=== PATIENT | male | born 1945 | race Caucasian/White ===

== ENCOUNTER 2018-02-28 16:36 | Emergency (ER) | payer MEDICARE, BC ==
[2018-02-28 16:44] VITALS: RESP 18
[2018-02-28] MEDS ORDERED: SODIUM CHLORIDE 0.9% 1,000 ML IV STA (17:13)
[2018-02-28] MEDS ORDERED: NITROGLYCERIN OINT 1 INCH/GM PACKET TOPICAL STA (17:13)
[2018-02-28 17:45] LABS: Basophils % (A) 1 %; Eosinophils # (A) 0.3 k/uL (0-0.7); Eosinophils % (A) 4 %; HCT 44.4 % (39.0-53.0); HGB 15.7 gm/dL (13.0-17.5); Lymphocytes # (A) 1.2 k/uL (1.0-4.8); Lymphocytes % (A) 17 %; MCH 30.4 pg (25.0-35.0); MCHC 35.3 g/dL (31.0-37.0); MCV 86.1 fL (80.0-100.0); Mean Platelet Volume 8.6; Monocytes # (A) 0.6 k/uL (0-1.0); Monocytes % (A) 8 %; Neutrophils # (A) 4.8 k/uL (1.3-7.7); Neutrophils % (A) 68 %; Platelet Count 156 k/uL (150-450); RBC 5.16 m/uL (4.30-5.90); RDW 12.1 % (11.5-15.5)
[2018-02-28 17:53] LABS: Creatine Kinase 64 U/L (55-170)
[2018-02-28 17:55] LABS: Albumin 3.9 g/dL (3.5-5.0); Calcium 9.7 mg/dL (8.4-10.2); Magnesium 1.7 mg/dL (1.6-2.3); Potassium 4.2 mmol/L (3.5-5.1); Total Bilirubin 0.7 mg/dL (0.2-1.3); Total Protein 6.2 g/dL (6.3-8.2)
[2018-02-28 17:59] LABS: D-Dimer 0.21 mg/L FEU (<0.60); INR 1.2 (<1.2); Prothrombin Time 11.3 sec (9.0-12.0)
[2018-02-28 18:06] LABS: Creatine Kinase MB 0.8 ng/mL (0.0-2.4); Troponin I <0.012 ng/mL (0.000-0.034)
--- NOTE | 2018-02-28 18:13 | XR ---
EXAMINATION TYPE: XR chest 2V DATE OF EXAM: 02/28/2018 COMPARISON: 04/07/2012 HISTORY: Chest pain TECHNIQUE: Frontal and lateral views of the chest are obtained. FINDINGS: Heart is borderline enlarged. Lungs are clear. There is no heart failure. There are chest leads. Bony thorax is intact. IMPRESSION: No active cardiopulmonary disease. No adverse change compared to old exam.
--- NOTE | 2018-02-28 19:38 | ED ---
Chest Pain HPI - General Chief Complaint: Chest Pain Stated Complaint: Chest pain Time Seen by Provider: 02/28/18 17:07 Source: patient Mode of arrival: wheelchair Limitations: no limitations - History of Present Illness Initial Comments: 21 years old male presents with the chest pain ongoing for about 7 days now pain was driving down to his left arm as well as to his neck at times today he had episode where his vision was quite blurred and he feels that during A for a short time he had no D collection when he was doing very he was then now it HAS to swallow the history of firm coronary artery disease he's is status post CABG approximately 5 years ago chest pain at this point is 5/10 and he had admitted pain gets worse when he takes a deep breath. He denies any headache no blurred vision at this point no slurred speech has chest pain no abdominal pain no frequency urgency dysuria no symptoms of TIA or CVA - Related Data Home Medications Medication Instructions Recorded Confirmed Acarbose [Precose] 50 mg PO TID 02/14/15 02/28/18 Atorvastatin [Lipitor] 20 mg PO HS 02/14/15 02/28/18 Colchicine 0.6 mg PO QID PRN 02/14/15 02/28/18 Glimepiride [Amaryl] 4 mg PO BID 02/14/15 02/28/18 Metoprolol Tartrate [Lopressor] 75 mg PO DAILY 02/14/15 02/28/18 Rivaroxaban [Xarelto] 20 mg PO AC-SUPPER 02/14/15 02/28/18 metFORMIN HCL [Glucophage] 1,000 mg PO BID 02/14/15 02/28/18 Cholecalciferol [Vitamin D3] 2,000 unit PO DAILY 02/15/15 02/28/18 Metoprolol Tartrate [Lopressor] 50 mg PO HS 02/15/15 02/28/18 Olopatadine HCl [Pataday] 1 drop BOTH EYES DAILY PRN 02/15/15 02/28/18 Benazepril HCl 40 mg PO DAILY 02/28/18 02/28/18 Doxazosin [Cardura] 1 mg PO HS 02/28/18 02/28/18 Febuxostat [Uloric] 40 mg PO DAILY 02/28/18 02/28/18 Allergies Allergy/AdvReac Type Severity Reaction Status Date / Time allopurinol [From Zyloprim] Allergy Unknown Verified 02/28/18 18:05 acetaminophen [From Vicodin] AdvReac Dry mouth Verified 02/28/18 18:05 hydrocodone [From Vicodin] AdvReac Dry mouth Verified 02/28/18 18:05 Review of Systems ROS Statement: Those systems with pertinent positive or pertinent negative responses have been documented in the HPI. ROS Other: All systems not noted in ROS Statement are negative. EKG Findings - EKG Comments: EKG Findings:: EKG is atrial fibrillation medical rate is 81 QRS duration is 90 QT/QTc is 378/439 review of this EKG does not reveal any ST elevation or ST depression Past Medical History Past Medical History: Atrial Fibrillation, Diabetes Mellitus, Hyperlipidemia, Hypertension Additional Past Medical History / Comment(s): mild gout History of Any Multi-Drug Resistant Organisms: None Reported Past Surgical History: Ablation, Appendectomy, Cholecystectomy, Coronary Bypass/ CABG, Joint Replacement, Orthopedic Surgery Additional Past Surgical History / Comment(s): open heart to repair hole after ablation in 01/2012, left knee replacement , right hip replacement Past Anesthesia/Blood Transfusion Reactions: No Reported Reaction Past Psychological History: No Psychological Hx Reported Smoking Status: Former smoker Past Alcohol Use History: Rare Past Drug Use History: None Reported - Past Family History Father Family Medical History: Coronary Artery Disease (CAD) General Exam - General Exam Comments Initial Comments: General: The patient is awake and alert, in no distress, and does not appear acutely ill. Skin: Skin is warm and dry and no rashes or lesions are noted. Eye: Pupils are equal, round and reactive to light, extra-ocular movements are intact; there is normal conjunctiva bilaterally. Ears, nose, mouth and throat: There are moist mucous membranes and no oral lesions. Neck: The neck is supple, there is no tenderness or JVD. Cardiovascular: There is a regular rate and rhythm. No murmur, rub or gallop is appreciated. Respiratory: To auscultation bilateral, no wheezing no rhonchi no distress respiratory hidalgo noticed Gastrointestinal: Soft, non-distended, non-tender abdomen without masses or organomegaly noted. There is no rebound or guarding present. Bowel sounds are unremarkable. Back: There is no tenderness to palpation in the midline. There is no obvious deformity. Musculoskeletal: Normal ROM, no tenderness, There is no pedal edema. There is no calf tenderness or swelling. No cords were appreciated. Neurological: CN II-XII intact, Cranial nerves III through XII are intact. There are no obvious motor or sensory deficits. Coordination appears grossly intact. Speech is normal. Psychiatric: Cooperative, appropriate mood & affect, normal judgment. Limitations: no limitations Course Vital Signs 02/28/18 02/28/18 02/28/18 16:39 19:19 19:20 Temperature 98 F 97.8 F Pulse Rate 94 78 79 Respiratory 18 16 18 Rate Blood Pressure 143/82 119/78 119/78 O2 Sat by Pulse 98 95 99 Oximetry 02/28/18 20:27 Temperature 97.9 F Pulse Rate 69 Respiratory 18 Rate Blood Pressure 137/92 O2 Sat by Pulse [address] is pending at this point, EKG was unremarkable d-dimer is negative CBC, comp his metabolic panel are unremarkable except the nares 1.29 troponin is negative so his chest x-ray Critical Care Time Total Critical Care Time: 30 Critical Care Time: Patient headache, blurred vision and amnesia and is on his overall toe he has a history of atrial fibrillation, we did a head CT head CT to rule out any subdural or epidural EKG was done troponin was checked along with the d-dimer pneumothorax, pneumonia, pulmonary embolism, myocardial infarction ruled out but he has a history of coronary artery disease he was advised to get hold of Dr. Khan tomorrow morning for further outpatient E well with the EKG or CT angiogram coronary disease or stress test or cardiac He agreed with the Disposition Clinical Impression: Blurred vision, Headache, Chest pain Disposition: HOME SELF-CARE Condition: Good Instructions: Chest Pain (ED) Is patient prescribed a controlled substance at d/c from ED?: No If prescribed controlled substance>3 days was MAPS reviewed?: No When asked, does pt state using other controlled substances?: No Referrals: Gage Alonso MD [Primary Care Provider] - 1-2 days Michael Law MD [STAFF PHYSICIAN] - 1-2 days
--- NOTE | 2018-02-28 20:17 | CT ---
EXAMINATION TYPE: CT brain wo con DATE OF EXAM: 02/28/2018 COMPARISON: NONE HISTORY: Visual disturbance and memory impairment a couple days ago. Seems to have resolved currently . CT DLP: 989.7 mGycm Automated exposure control for dose reduction was used. FINDINGS: Ventricles have normal size. There is no mass effect nor midline shift. There is no sign of intracran ial hemorrhage. The calvarium is intact. IMPRESSION: NEGATIVE CT SCAN OF THE BRAIN.
[2018-02-28 20:28] VITALS: BP 137/92; PULSE 69; TEMP 97.9
== END 2018-02-28 20:56 | disposition home or self-care (01) ==
LOC: EC 16:36
DX: R07.9 Chest pain, unspecified (principal); R51 Headache; H53.8 Other visual disturbances; I48.91 Unspecified atrial fibrillation; E11.9 Type 2 diabetes mellitus without complications; E78.5 Hyperlipidemia, unspecified; I10 Essential (primary) hypertension; M10.9 Gout, unspecified; Z95.1 Presence of aortocoronary bypass graft; Z96.652 Presence of left artificial knee joint; Z87.891 Personal history of nicotine dependence; Z96.641 Presence of right artificial hip joint; Z98.890 Other specified postprocedural states; Z82.49 Family history of ischemic heart disease and other diseases of the circulatory system; Z79.01 Long term (current) use of anticoagulants; Z79.84 Long term (current) use of oral hypoglycemic drugs; Z79.899 Other long term (current) drug therapy; Z88.8 Allergy status to other drugs, medicaments and biological substances; Z88.5 Allergy status to narcotic agent; Z88.6 Allergy status to analgesic agent
CPT/HCPCS: 36415; 70450; 71046; 80053; 82550; 82553; 83735; 84484; 85025; 85379; 85610; 85730; 93005; 96360; 96361; 99291

== ENCOUNTER 2019-02-04 19:03 | Emergency (ER) | payer BC, MEDICARE ==
[2019-02-04 19:17] VITALS: BP 114/71; PULSE 99; RESP 20; TEMP 98.7
--- NOTE | 2019-02-04 19:31 | ED ---
General Adult HPI - General Chief complaint: Extremity Injury, Lower Stated complaint: fall, head injury, rt knee injury Time Seen by Provider: 02/04/19 19:22 Source: patient, family Mode of arrival: wheelchair Limitations: no limitations - History of Present Illness Initial comments: Mik is a pleasant 73-year-old gentleman with a history of A. fib for which he takes throughout O he presents the emergency department this evening for evaluation of right knee pain and abrasion to his right forehead. Patient reports that earlier in the day he was walking, using his cane in a parking not when he tripped over a crack in the concrete. He fell forward striking his right knee and right side of his face. This broke his glasses. He did not have any loss of consciousness he was able get up is able to walk. He reports that throughout the days have progressively worsening soreness in the right knee surgery came in for an x-ray. The patient does note that he has an abrasion above his right eyebrow Mayra he does not recall when his last tetanus vaccination was. - Related Data Home Medications Medication Instructions Recorded Confirmed Acarbose [Precose] 50 mg PO TID 02/14/15 02/28/18 Atorvastatin [Lipitor] 20 mg PO HS 02/14/15 02/28/18 Colchicine 0.6 mg PO QID PRN 02/14/15 02/28/18 Glimepiride [Amaryl] 4 mg PO BID 02/14/15 02/28/18 Metoprolol Tartrate [Lopressor] 75 mg PO DAILY 02/14/15 02/28/18 Rivaroxaban [Xarelto] 20 mg PO AC-SUPPER 02/14/15 02/28/18 metFORMIN HCL [Glucophage] 1,000 mg PO BID 02/14/15 02/28/18 Cholecalciferol [Vitamin D3] 2,000 unit PO DAILY 02/15/15 02/28/18 Metoprolol Tartrate [Lopressor] 50 mg PO HS 02/15/15 02/28/18 Olopatadine HCl [Pataday] 1 drop BOTH EYES DAILY PRN 02/15/15 02/28/18 Doxazosin [Cardura] 1 mg PO HS 02/28/18 02/28/18 Febuxostat [Uloric] 40 mg PO DAILY 02/28/18 02/28/18 Benazepril HCl 10 mg PO DAILY 02/04/19 02/04/19 Dulaglutide [Trulicity] 0.75 mg SQ WE 02/04/19 02/04/19 Empagliflozin [Jardiance] 25 mg PO DAILY 02/04/19 02/04/19 Allergies Allergy/AdvReac Type Severity Reaction Status Date / Time allopurinol [From Zyloprim] Allergy Unknown Verified 02/04/19 20:04 acetaminophen [From Vicodin] AdvReac Dry mouth Verified 02/04/19 20:04 hydrocodone [From Vicodin] AdvReac Dry mouth Verified 02/04/19 20:04 Review of Systems ROS Statement: Those systems with pertinent positive or pertinent negative responses have been documented in the HPI. ROS Other: All systems not noted in ROS Statement are negative. Past Medical History Past Medical History: Atrial Fibrillation, Diabetes Mellitus, Hyperlipidemia, Hypertension Additional Past Medical History / Comment(s): mild gout History of Any Multi-Drug Resistant Organisms: None Reported Past Surgical History: Ablation, Appendectomy, Cholecystectomy, Coronary Bypass/CABG, Joint Replacement, Orthopedic Surgery Additional Past Surgical History / Comment(s): open heart to repair hole after ablation in 01/2012, left knee replacement , right hip replacement Past Anesthesia/Blood Transfusion Reactions: No Reported Reaction Past Psychological History: No Psychological Hx Reported Smoking Status: Former smoker Past Alcohol Use History: Rare Past Drug Use History: None Reported - Past Family History Father Family Medical History: Coronary Artery Disease (CAD) General Exam - General Exam Comments Initial Comments: Physical Exam GENERAL: Patient is well-developed and well-nourished. Patient is nontoxic and well-hydrated and is in no distress. HENT: Normocephalic Abrasion over right eyebrow, superficial lacerations to the right cheek and lateral to the right eye consistent with patient's fall and breaking his glasses TMs normal bilaterally no hemotympanum No costello signs or raccoon eyes EYES: PERRL, EOMI PULMONARY: Unlabored respirations. No audible rales rhonchi or wheezing was noted. CARDIOVASCULAR: Irregularly irregular Warm and well perfused extremities ABDOMEN: Soft and nontender with normal bowel sounds. SKIN: Abrasion right knee : Deferred NEUROLOGIC: Patient is alert and oriented x3. Moving all extremities spontaneously MUSCULOSKELETAL: Normal extremities with adequate strength and full range of motion. No lower extremity swelling or edema. No calf tenderness. Left knee replacement, right hip replacement Normal Range of motion of right knee, negative anterior and posterior drawer signs negative Lockman and Lon signs, no effusion PSYCHIATRIC: Normal psychiatric evaluation. Limitations: no limitations Course Vital Signs 02/04/19 19:12 Temperature 98.7 F Pulse Rate 99 Respiratory 20 Rate Blood Pressure 114/71 O2 Sat by Pulse 97 Oximetry EKG Findings - EKG Comments: EKG Findings:: EKG was obtained at 7:28 PM, rate is 90 rhythm is atrial fibrillation there is normal axis, normal intervals, QRS 88, QTC is 4:30no acute ST elevations or depressions no evidence of acute ischemia or infarction Medical Decision Making - Medical Decision Making Patient was seen and evaluated history was obtained from patient and at bedside Patient had a full much earlier in the day he's had progressively worsening aching pain in his right knee was concerned that he made an x-ray Given that the patient is under also does have an obvious head injury a head CT was also ordered Head CT was unremarkable, knee x-ray also reveals no acute injury though there is obvious osteoarthritis These results were discussed with the patient who expresses relief patient also states he is not sure when his tetanus was lactose updated and is agreeable to vaccine today All questions pertaining care were answered return parameters were discussed patient was discharged home in stable condition Disposition Clinical Impression: Abrasion of forehead, Contusion of right knee Disposition: HOME SELF-CARE Instructions (If sedation given, give patient instructions): Abrasion (ED) Is patient prescribed a controlled substance at d/c from ED?: No Referrals: Gage Alonso MD [Primary Care Provider] - 1-2 days
--- NOTE | 2019-02-04 20:00 | CT ---
EXAMINATION TYPE: CT brain nehal moody DATE OF EXAM: 02/04/2019 COMPARISON: CT brain 02/28/2018 HISTORY: fall. abrasion above right eye CT DLP: 1379.8 mGycm Automated exposure control for dose reduction was used. TECHNIQUE: CT scan of the head and cervical spine are performed without contrast. FINDINGS: There is cerebral cortical atrophy. There is no mass effect nor midline shift. There is n o sign of intracranial hemorrhage. Calvarium is intact. Cervical vertebra have normal alignment. There is minor spurring at C5-6. Posterior elements are inta ct. Facet joints are intact. There is mild hypertrophic spurring of the facet joints. The skull base is intact. IMPRESSION: Mild atrophy. No acute intracranial abnormality. No change. Minor degenerative changes in the cervical spine. No fracture.
--- NOTE | 2019-02-04 20:08 | XR ---
EXAMINATION TYPE: XR knee complete RT DATE OF EXAM: 02/04/2019 COMPARISON: NONE HISTORY: Knee pain TECHNIQUE: 3 views FINDINGS: There is mild spurring of the medial femoral and tibial condyles. There is vascular calcifi cation. There is faint calcification in the lateral meniscus. There is narrowing and spurring of the patellofemoral joint. IMPRESSION: Mild osteoarthritis. No fracture. Mild chondrocalcinosis.
[2019-02-04] MEDS ORDERED: DIPH,PERTUS(ACELL)TETVAC-LF 0.5 ML VIAL IM ONE (20:24)
== END 2019-02-04 20:55 | disposition home or self-care (01) ==
LOC: EC 19:03
DX: S80.01XA Contusion of right knee, initial encounter (principal); S00.81XA Abrasion of other part of head, initial encounter; M17.11 Unilateral primary osteoarthritis, right knee; I48.91 Unspecified atrial fibrillation; E11.9 Type 2 diabetes mellitus without complications; E78.5 Hyperlipidemia, unspecified; I10 Essential (primary) hypertension; M10.9 Gout, unspecified; Z95.1 Presence of aortocoronary bypass graft; Z96.652 Presence of left artificial knee joint; Z96.641 Presence of right artificial hip joint; Z87.891 Personal history of nicotine dependence; Z79.01 Long term (current) use of anticoagulants; Z79.84 Long term (current) use of oral hypoglycemic drugs; Z79.899 Other long term (current) drug therapy; Z88.8 Allergy status to other drugs, medicaments and biological substances; Z88.6 Allergy status to analgesic agent; Z88.5 Allergy status to narcotic agent; Z23 Encounter for immunization; W01.10XA Fall on same level from slipping, tripping and stumbling with subsequent striking against unspecified object, initial encounter; Y93.01 Activity, walking, marching and hiking; Y92.89 Other specified places as the place of occurrence of the external cause
CPT/HCPCS: 70450; 72125; 90471; 90715; 99284

== ENCOUNTER 2021-03-19 06:16 | Day surgery (SDC) | payer MEDICARE ==
[2021-03-18 10:02] VITALS: BMI 29.5
[~2021-03-19 06:16] MED LIST: LACTATED RINGERS 1,000 ML IV SCH; LIDOCAINE 1% (10MG/ML) FOR IV START INTRADERMA PRN; TETRACAINE 0.5% OPHTH (PF) DROPS 4 ML BTL OP PRN
[2021-03-19 06:53] VITALS: RESP 18; TEMP 97.9
[2021-03-19] MEDS: CYCLOPENTOLATE 1% OPHTH SOLN 2 ML BTL OP PRN ×3 (06:54→07:06)
[2021-03-19] MEDS: PHENYLEPHRINE 2.5% OPHTH DRP 2ML OP PRN ×3 (06:57→07:08)
[2021-03-19] MEDS ORDERED: ONDANSETRON 4 MG/2 ML VIAL IVP PRN (07:00)
[2021-03-19 07:03] LABS: Glucose,Whole Blood 159 mg/dL (75-99)
[2021-03-19] MEDS ORDERED: fentaNYL (PF) 50 MCG/ML 2 ML AMP ONE (07:30)
[2021-03-19] MEDS ORDERED: EPINEPHrine (PF) 0.3 ML in BALANCED SALT IRRIG SOLN COMB2 500 ML IRRIGATION ONE ×4 (07:35)
[2021-03-19] MEDS ORDERED: HYALURONATE SODIUM INTRAOCULAR 1 EACH SYRINGE (12MG/ML) INTRAOCULA ONE (07:43)
[2021-03-19] MEDS ORDERED: BALANCED SALT IRRIG SOLN COMB2 15 ML IRRIG.SOLN IRRIGATION ONE (07:43)
[2021-03-19] MEDS ORDERED: LIDOCAINE 1% (PF) 10MG/ML VIAL MISCELLANE ONE (07:43)
[2021-03-19] MEDS: TIMOLOL 0.5% OPHTH DROPS 5 ML BTL OP PRN ×2 (07:44→07:56)
[2021-03-19] MEDS: MOXIFLOXACIN HCL 0.5% DROPS 3 ML BTL OP PRN ×2 (07:44→07:56)
--- NOTE | 2021-03-19 07:58 | P.OP ---
Date of Procedure: 03/19/21 Preoperative Diagnosis: NS & CS & reg Astig Postoperative Diagnosis: same Procedure(s) Performed: CORIN, OD Implants: [id number] 20.00x 1.25 Anesthesia: MAC Surgeon: Charli Valencia Pathology: none sent Condition: stable Disposition: same day Indications for Procedure: blurry vision Operative Findings: no complications
[2021-03-19 08:21] VITALS: BP 116/77; PULSE 92
--- NOTE | 2021-03-20 09:24 | OP ---
OPERATIVE REPORT DATE OF SURGERY: March 19, 2021. PROCEDURES: Phacoemulsification of cataract and intraocular lens implant of the right eye. PREOPERATIVE DIAGNOSES: Nuclear sclerosis, cortical sclerosis and regular astigmatism. POSTOPERATIVE DIAGNOSES: Nuclear sclerosis, cortical sclerosis and regular astigmatism. SURGEON: Dr. Charli Valencia. ANESTHESIA: Topical. ESTIMATED BLOOD LOSS: None. SPECIMEN TAKEN: None. NARRATIVE: After obtaining the appropriate consent, the patient was brought to the operating room. There he was asked to sit upright in the axes of 0 and 180 degrees were identified and marked with a gentian radha marker. He was then placed in the proper supine position under cardiac monitoring and prepped and draped in the usual sterile manner. He was approached from his right temporal side and using previously acquired corneal topography information the axis of 25 degrees was identified and marked with a [employer] axis marker. At the 11 o'clock position an MVR blade was used to create a paracentesis port. Through this opening, 1% Xylocaine MPF 50:50 mix with balanced salt solution was injected into the anterior chamber. This was followed by stabilization of the anterior chamber with Amvisc. At the 9 o'clock position, a 2.5 mm keratome was used to create a self-sealing corneal flap incision. Through this opening, a cystotome was introduced to begin a continuous tear capsulorrhexis which was then completed using the Utrata forceps. Hydrodissection and hydrodelineation of the lens were accomplished with balanced salt solution. Phacoemulsification of the lens utilizing phaco chop was accomplished in 10.05 seconds at 17% power. Additional Xylocaine MPF was instilled into the anterior chamber. This was followed by removal of the remaining cortex under irrigation and aspiration as well as well as careful polishing of the posterior capsule in the capsule vacuum mode. Provisc was then used to stabilize the capsular bag and a [employer]ch [employer] MX60ET 20.0 diopter by 1.25 astigmatism correction diopter was placed into the capsular bag without difficulty. The remaining viscoelastic was then removed from in and around the intraocular lens and the lens was then rotated to align the lens hash alicea with the previously placed corneal axis alicea at the 25 degree area. Lens was slightly tamponaded against the posterior capsule. This was followed by bringing the eye to normal intraocular pressure through the paracentesis port while confirming water tight integrity from both the temporal as well as the paracentesis port. He then received 2 drops of 0.5% timolol followed by 2 drops of moxifloxacin, was then lightly patched and shielded in the usual manner. There were no complications from the procedure. He tolerated the procedure well and was returned to outpatient recovery in good condition. OLIVIER / HALINA: [id number] /
== END 2021-03-19 08:57 | disposition home or self-care (01) ==
LOC: OR 06:16
PROVIDERS: ATTEND Ophthalmology
DX: E11.36 Type 2 diabetes mellitus with diabetic cataract (principal); H25.13 Age-related nuclear cataract, bilateral; H02.833 Dermatochalasis of right eye, unspecified eyelid; H02.836 Dermatochalasis of left eye, unspecified eyelid; H10.45 Other chronic allergic conjunctivitis; H52.223 Regular astigmatism, bilateral; H43.393 Other vitreous opacities, bilateral; H52.13 Myopia, bilateral; H43.21 Crystalline deposits in vitreous body, right eye; H52.4 Presbyopia; I48.91 Unspecified atrial fibrillation; I10 Essential (primary) hypertension; M19.90 Unspecified osteoarthritis, unspecified site; E78.00 Pure hypercholesterolemia, unspecified; Z90.89 Acquired absence of other organs; Z96.641 Presence of right artificial hip joint; Z96.652 Presence of left artificial knee joint; Z79.01 Long term (current) use of anticoagulants; Z79.84 Long term (current) use of oral hypoglycemic drugs; Z79.899 Other long term (current) drug therapy; Z88.5 Allergy status to narcotic agent
CPT/HCPCS: 66984; C1780; J0171; J3010; J2001

== ENCOUNTER 2021-04-11 08:04 | Day surgery (SDC) | payer MEDICARE, OTHER ==
[2021-04-09 09:44] VITALS: BMI 28.8
[~2021-04-11 08:04] MED LIST changes: -LIDOCAINE 1% (10MG/ML) FOR IV START INTRADERMA PRN
[2021-04-11 08:29] VITALS: TEMP 98.2
[2021-04-11] MEDS: PHENYLEPHRINE 2.5% OPHTH DRP 2ML OP PRN ×3 (08:33→08:52)
[2021-04-11] MEDS: CYCLOPENTOLATE 1% OPHTH SOLN 2 ML BTL OP PRN ×3 (08:38→09:00)
[2021-04-11] MEDS ORDERED: LIDOCAINE 1% (10MG/ML) FOR IV START INTRADERMA ONE (08:48)
[2021-04-11 08:50] LABS: Glucose,Whole Blood 197 mg/dL (75-99)
[2021-04-11] MEDS ORDERED: MIDAZOLAM 2 MG/2 ML VIAL ONE (09:04)
[2021-04-11] MEDS ORDERED: fentaNYL (PF) 50 MCG/ML 2 ML AMP ONE (09:04)
[2021-04-11] MEDS: TIMOLOL 0.5% OPHTH DROPS 5 ML BTL OP PRN ×2 (09:06→09:22)
[2021-04-11] MEDS: MOXIFLOXACIN HCL 0.5% DROPS 3 ML BTL OP PRN ×2 (09:06→09:22)
[2021-04-11] MEDS ORDERED: BALANCED SALT IRRIG SOLN COMB2 15 ML IRRIG.SOLN INTRAOCULA ONE ×2 (09:06→09:22)
[2021-04-11] MEDS ORDERED: LIDOCAINE 1% (PF) 10MG/ML VIAL MISCELLANE ONE ×2 (09:06→09:24)
[2021-04-11] MEDS ORDERED: HYALURONATE SODIUM INTRAOCULAR 1 EACH SYRINGE (12MG/ML) INTRAOCULA ONE ×2 (09:06→09:22)
[2021-04-11] MEDS ORDERED: EPINEPHrine (PF) 0.3 ML in BALANCED SALT IRRIG SOLN COMB2 500 ML IRRIGATION ONE (09:21)
--- NOTE | 2021-04-11 09:38 | P.OP ---
Date of Procedure: 04/11/21 Preoperative Diagnosis: NS & CS & reg astig Postoperative Diagnosis: same Procedure(s) Performed: PIOL, OS Implants: MXET 20.00 x 1.25 Anesthesia: MAC Surgeon: Charli Valencia Pathology: none sent Condition: stable Disposition: same day Indications for Procedure: blurry vision Operative Findings: no complications
[2021-04-11 09:40] VITALS: RESP 17
[2021-04-11 09:53] VITALS: BP 101/62; PULSE 69
--- NOTE | 2021-04-11 18:50 | OP ---
OPERATIVE REPORT DATE OF SURGERY: 03/11/2021. PROCEDURE: Phacoemulsification of cataract and intraocular lens implant of the left eye. PREOPERATIVE DIAGNOSIS: Nuclear sclerosis, cortical sclerosis and regular astigmatism. POSTOPERATIVE: Nuclear sclerosis, cortical sclerosis and regular astigmatism. SURGEONS: Dr. Charli Valencia. ANESTHESIA: Topical. ESTIMATED BLOOD LOSS: None. SPECIMEN TAKEN: None. NARRATIVE: After obtaining the appropriate consent, the patient was brought to the operating room. There he was asked to sit upright in the axes 0 and 180 degrees were identified and marked with a gentian radha marker. He was then laid in the proper supine position under cardiac monitoring, prepped and draped in the usual sterile manner. He was approached from his left temporal side and using previously acquired corneal topography information, the axis of 155 degrees was identified and marked with a [employer] axis marker. At the 5 o'clock position an MVR blade was used to create a paracentesis port. Through this opening 1% xylocaine MPF 50 50 mixed with balanced salt solution was injected into the anterior chamber. This was followed by stabilization of the anterior chamber with Amvisc. At the 3 o'clock position a 2.5 mm keratome was used to create a self-sealing corneal flap incision. Through this opening a cystotome was introduced to begin a continuous tear capsulorrhexis which was completed using the Utrata forceps. Hydrodissection and hydrodelineation of the lens was accomplished with balanced salt solution. Phacoemulsification of the lens utilizing phaco chop was accomplished in 13.45 seconds at 12% power. Additional xylocaine MPF was instilled into the anterior chamber. This was followed by removal of the remaining cortex under irrigation and aspiration as well as careful polishing of the posterior capsule and the capsule vacuum mode. Amvisc was then used to stabilize the capsular bag and a [employer]ausch [employer] Lomb MX 60 ET 20 diopter by 1.25 diopter cylinder lens was placed into the capsular bag without difficulty. The remaining viscoelastic was removed from in and around the intra-ocular lens and the final stage of the lens index alicea were aligned with the previously placed axis malika at 155 degrees earlier in the case. The lens was tamponaded against the posterior capsule and the eye was then brought to normal intraocular pressure through the paracentesis port with balanced salt solution. He then received 2 drops of 0.5% timolol followed by 2 drops of 0.5% moxifloxacin. He was then lightly patched and shielded in the usual manner. There were no complications from the procedure. He tolerated the procedure well and was returned to outpatient recovery in good condition. OLIVIER / HARESHN: [id number] /
== END 2021-04-11 10:12 | disposition home or self-care (01) ==
LOC: OR 08:04
PROVIDERS: ATTEND Ophthalmology
DX: H25.12 Age-related nuclear cataract, left eye (principal); H25.012 Cortical age-related cataract, left eye; H52.223 Regular astigmatism, bilateral; E11.9 Type 2 diabetes mellitus without complications; H02.833 Dermatochalasis of right eye, unspecified eyelid; H43.393 Other vitreous opacities, bilateral; H52.13 Myopia, bilateral; H52.4 Presbyopia; Z98.41 Cataract extraction status, right eye; Z96.1 Presence of intraocular lens; I48.91 Unspecified atrial fibrillation; I10 Essential (primary) hypertension; M19.90 Unspecified osteoarthritis, unspecified site; E78.00 Pure hypercholesterolemia, unspecified; Z96.641 Presence of right artificial hip joint; Z96.652 Presence of left artificial knee joint; Z90.89 Acquired absence of other organs; Z80.41 Family history of malignant neoplasm of ovary; Z83.3 Family history of diabetes mellitus; Z83.518 Family history of other specified eye disorder; Z95.1 Presence of aortocoronary bypass graft; Z87.891 Personal history of nicotine dependence; Z79.01 Long term (current) use of anticoagulants; Z79.84 Long term (current) use of oral hypoglycemic drugs; Z79.899 Other long term (current) drug therapy; Z88.5 Allergy status to narcotic agent; Z88.8 Allergy status to other drugs, medicaments and biological substances
CPT/HCPCS: 66984; V2787; C1780; J2250; J0171; J3010; J2001

== ENCOUNTER → 2024-01-14 | Outpatient (CLI) | payer MEDICARE ==
[2024-01-14 09:05] LABS: African American GFR (CKD) 59 (>60 ml/min/1.73 sqM); Blood Urea Nitrogen 21 mg/dL (9-20); Non-African American GFR(CKD) 51 (>60 ml/min/1.73 sqM)
--- NOTE | 2024-01-20 10:09 | CT ---
EXAMINATION TYPE: CT angio head neck DATE OF EXAM: 01/14/2024 10:18 AM COMPARISON: CT brain 02/28/2018. CLINICAL INDICATION:Male, 78 years old with history of R41.3 MEMORY LOSS R47.02 DYSPHASIA; PHH, memor y loss and dsyphasia x6 months TECHNIQUE: Noncontrast CT head was first performed. Multiplanar reformats. CTA head and neck was obtained with contrast per facility protocol. Multiplanar images are supplement ed with 3D reconstructions which were post-processed at an independent workstation. NASCET criteria u sed. Contrast used: 65 mL of Isovue 370 with IV Contrast, Oral contrast used: None. CT DLP: 1513.5 mGycm, Automated exposure control for dose reduction was used. FINDINGS: CT head: Mild generalized atrophy with associated prominence of the ventricles and CSF spaces. Small scattered areas of white matter hypoattenuation are suggested, essentially nonspecific but often seen with chr onic microvascular ischemic changes in this age group. No acute intracranial hemorrhage, mass effect, or midline shift. No distinct loss of ridley-white disti nction to suggest changes of acute infarct. Basal cisterns are patent. Moderate calcifications of the large arteries near the skull base. Mild nasal septal deviation towards the right. Mild scattered paranasal sinus mucosal thickening with out significant fluid accumulation. Mastoid air cells are clear. Orbits and visualized extracranial soft tissues show no acute abnormalities. There has likely been pr ior bilateral lens surgery. CTA Neck: A 3 vessel aortic arch is shown. No dissection. Minimal atherosclerosis proximal left subclavian mireya ry with no significant stenosis. Right carotid system: The common carotid is patent. Bifurcation is patent. ECA is normally patent. Th ere is mixed soft and calcified plaque in the proximal ICA, with under 50% diameter stenosis. Left carotid system: The common carotid is patent. Mostly calcified small atherosclerotic plaques at the carotid bifurcation and proximal ICA. Proximal ICA appears mildly narrowed, less than 50% diamete r stenosis. Vertebral arteries: Some atherosclerotic plaque appears to be present close to the origins of the lef t and right vertebral arteries. There could be an element of mild stenosis. The vertebrals are then otherwise patent to the skull base. The left vertebral artery is dominant. Other: Visualized neck soft tissues show no concerning abnormality. Thyroid has a tiny hypodense nodu le on the left with an internal rounded calcification, most likely benign. Cervical spine shows mild/ moderate degenerative changes without acute abnormality. Imaged portions of the lung apices show no a cute infiltrate or pneumothorax. CTA Head: intracranial vertebral arteries are patent. There are some V4 calcifications without significant sten osis. Basilar artery is mildly tortuous but otherwise patent and unremarkable. The bifurcation is pat ent. No basilar tip aneurysm. Visualized proximal miter grinder operator are normal. A patent right posterior communicating artery is seen. There are some calcifications of the cavernous portions of the ICAs without significant stenosis. Pat ent [place] is seen. Anterior communicating artery is not definitively identified. No intracranial large vessel occlusion, hemodynamically significant stenosis, aneurysm, dissection, o r arteriovenous malformation is shown. The dural venous sinuses appear grossly patent without evidence of thrombosis. IMPRESSION: CTA neck: 1. Patent CTA Neck. 2. Mild mostly calcified atherosclerotic plaque throughout, including the proximal ICAs, without sig nificant stenosis demonstrated. 3. Small left thyroid nodule. CTA head: 1. Patent CTA head. 2. No intracranial large vessel occlusion, significant stenosis, or sizable aneurysm detected in the limits of CTA. CT head: 1. No acute intracranial CT abnormality. 2. Mild atrophy and chronic microvascular ischemic changes.
== END | disposition home or self-care (01) ==
LOC: RADCTMAIN 07:58
PROVIDERS: ATTEND Family Medicine
DX: I70.8 Atherosclerosis of other arteries (principal); E04.1 Nontoxic single thyroid nodule; I67.82 Cerebral ischemia
CPT/HCPCS: 82565; 84520; 70496; 70498; 36415; Q9967